=== PATIENT | female | born 1985 | race Caucasian/White ===

== ENCOUNTER 2022-06-25 08:30 | Outpatient (RCR) | payer OTHER ==
[~2022-06-25 08:30] MED LIST: FLEXERIL 1010 MG/TAB PO
== END 2022-06-26 | disposition home or self-care (01) ==
LOC: MKS.ESL.PT
DX: S13.4XXD Sprain of ligaments of cervical spine, subsequent encounter (principal); X58.XXXD Exposure to other specified factors, subsequent encounter

== ENCOUNTER 2022-07-18 12:45 | Outpatient (RCR) | payer OTHER | END 2022-07-27 | disposition still patient (30) | LOC: MKS.ESL.PT | DX: S13.4XXD Sprain of ligaments of cervical spine, subsequent encounter (principal); X58.XXXD Exposure to other specified factors, subsequent encounter ==

== ENCOUNTER 2022-08-16 14:58 | Outpatient (RCR) | payer OTHER | END 2022-08-16 15:05 | LOC: MKS.ESL.PT 14:58 | DX: S13.4XXD Sprain of ligaments of cervical spine, subsequent encounter (principal) ==

== ENCOUNTER 2022-08-24 13:24 | Outpatient (RCR) | payer OTHER | END 2022-08-26 | disposition home or self-care (01) | LOC: MKS.ESL.PT | DX: M25.512 Pain in left shoulder (principal) ==